=== PATIENT | female | born 1985 | race African-American/Black ===

== ENCOUNTER 2017-01-28 23:55 | Emergency (ER) | payer MEDICAID ==
[~2017-01-28] VITALS: Ht 167.6 cm; Wt 77.3 kg
--- NOTE | 2017-01-28 23:57 | ED.REPORT ---
HPI-Seizure Date of Service Jan 28, 2017 ED Provider: Nursing Notes Stated Complaint: SEIZURE Chief Complaint: Seizure General Time Seen by Provider: 23:57 Jonathan Raphael DO Jan 28, 2017 23:57
[2017-01-28 23:59] VITALS: BP 140/78; PULSE 105; RESP 20; O2SAT 98
--- NOTE | 2017-01-29 00:02 | ED.REPORT ---
HPI-Seizure Date of Service Jan 29, 2017 ED Provider: Ciro Valencia MD The pt is a 31 y/o female with a hx of seizures who presents to the ED via EMS due to a seizure today at [facility]. The pt has had a few seizures in the last 15 years but is unable to give an estimate of how many. She associates the onset of seizure with overheating. She denies lack of sensation in her extremities, biting her tongue, and urinary incontinence. She reports taking carbamazepine "decades ago" but has not taken any recently as it doesn't seem to help. Nursing Notes Stated Complaint: SEIZURE Chief Complaint: Seizure Nursing Notes Reviewed: Yes Allergies: Coded Allergies: No Known Allergies (Unverified , 01/29/17) General Time Seen by Provider: 23:57 Chief Complaint Chief Complaint: Seizure, generalized Hx Obtained From: Patient Arrived By: Ambulance Onset Occurred: Just prior to arrival Severity: Current: No pain currently Severity: Maximum: No pain Recent Healthcare: No recent doctor visit Past Medical History Past Medical History Reports: Seizure disorder Past Surgical History none reported Smoking History Unknown if Ever Smoker Social History Lives in [facility] Ambulatory Status Independent Review of Systems Denies: lack of sensation in extremities Denies: biting her tongue Neurologic: Reports: Seizure Complete sys rev & neg: except as marked. Female: Denies: Incontinence Physical Exam Initial Vital Signs Vital Signs (First) Date Time Temp Pulse Resp B/P Pulse Ox O2 Delivery O2 Flow Rate FiO2 01/28/17 23:59 36.8 105 20 140/78 98 01/29/17 02:58 Room Air Initial VS: Reviewed Head / Eyes: Atraumatic, Normocephalic Abdomen / GI: Soft, Non-tender, No guarding, No rebound, No distention Extremities: Vascular intact, Neuro intact, No swelling, No tenderness Skin: Warm, Dry, No cyanosis General/Constitutional: Awake The pt is post-ictal and dazed. Neck: Atraumatic, Supple, Full range of motion, No swelling, Non-tender Respiratory / Chest: Atraumatic, Breath sounds NL, Breath sounds = bilat, No respiratory distress, No rales, No rhonchi, No wheezing Cardiovascular: Heart rate NL, Regular rhythm, Heart sounds NL, No gallop, No murmurs, No rubs Neurologic: Oriented X3, Speech NL, No motor deficits, No sensory deficits Mental Status: Positive: Confused Speech: Positive: Slow Interpretation & Diagnostics Lab Results Interpretation Result Diagram: 01/29/17 0118 01/29/17 0118 Test 01/29/17 01:18 01/29/17 01:19 White Blood Count 8.5th/mm3 (3.8-10.1) Red Blood Count 3.95mil/mm3 (3.90-5.20) Hemoglobin 10.4g/dL (12.0-15.6) Hematocrit 32.8% (35.0-46.0) Mean Corpuscular Volume 83.0fL (81-100) Mean Corpuscular Hemoglobin 26.3pg (27.0-35.0) Mean Corpuscular Hemoglobin Concent 31.7% (32.0-37.0) Red Cell Distribution Width 13.5% (12.3-15.4) Platelet Count 391bil/L (150-400) Neutrophils (%) (Auto) 74.4% (40-74) Lymphocytes (%) (Auto) 15.1% (14-46) Monocytes (%) (Auto) 7.5% (4-12) Eosinophils (%) (Auto) 2.6% (0-5) Basophils (%) (Auto) 0.2% (0-3) Sodium Level 145mEq/L (134-144) Potassium Level 3.5mEq/L (3.5-5.2) Chloride Level 105mEq/L (97-108) Carbon Dioxide Level 25mmol/L (18-29) Blood Urea Nitrogen 6mg/dL (6-20) Creatinine 0.92mg/dL (0.57-1.00) Estimat Glomerular Filtration Rate 90mL/min (>59) Glucose Level 150mg/dL (60-99) Calcium Level 9.3mg/dL (8.5-10.1) Total Bilirubin 0.2mg/dL (0.0-1.2) Aspartate Amino Transf (AST/SGOT) 22U/L (0-50) Alanine Aminotransferase (ALT/SGPT) 15U/L (0-32) Alkaline Phosphatase 65U/L (25-150) Total Protein 7.7g/dL (6.4-8.4) Albumin 4.4g/dL (3.4-5.0) Hold Proctor Top Tube Received (Received) ECG Interpretation ECG Interpretation: Normal sinus rhythm. Rate 94. Low voltage, precordial leads. Time: 01:18 Interpreted by: ED physician X-Ray Chest Interpretation Chest Xray Interpretation: No acute findings. View: Portable, 1 view Interpretation / Wet Read by: Wet read ED physician Re-Eval/Medical Decision Med Decision/Clinical Course 31-year-old with a reported history of seizures had a seizure at [facility]. She relates this to being excessively hot. She has had a series of seizures over many years, but apparently had a rate of perhaps one a year. She does not want any seizure medicines at this time. She refuses an IV. She finally has allowed lab results to be obtained and these are reassuring. Discharge now in stable condition desiring no ongoing therapy. Counseled Regarding: Diagnosis, Lab results, Need for follow-up, When/why to return to ED Discharge & Departure Impression: Primary Impression: Seizure Disposition: Home Discharge Condition All VS Reviewed: Yes Condition: Stable Patient Instructions: Epilepsy (ED) Additional Instructions: Your seizures appear to be fairly infrequent, and your experience with meds has been at they are generally ineffective. There are several new or ones to try, but I would wait until you have more frequency before trying to pursue medical treatment. Follow-up with your doctor. Return if any immediate issues. Scribe Attestation Portions of this note were transcribed by Harpreet Prajapati. I,, personally performed the history,physical exam and medical decision-making;I reviewed and confirmed the accuracy of the information in the transcribed note. Signed by Netta Soto. 01/29/17 Ciro Valencia MD Jan 29, 2017 00:02 Harpreet Prajapati Jan 29, 2017 00:28
[2017-01-29] MEDS ORDERED: 0.9% Sodium Chloride 1,000 ML IV ONE (00:03)
[2017-01-29] MEDS ORDERED: Ondansetron 8 mg ODT Tablet PO ONE (00:30)
[2017-01-29 01:22] LABS: BASOPHILS % (AUTO) 0.2 % (0-3); EOSINOPHILS % (AUTO) 2.6 % (0-5); MONOCYTES % (AUTO) 7.5 % (4-12); Mean Corpuscular Hemoglobin 26.3 pg (27.0-35.0); NEUTROPHILS % (AUTO) 74.4 % (40-74); Platelet Count 391 bil/L (150-400)
[2017-01-29 02:58] VITALS: BP 138/75; PULSE 85; RESP 18; O2SAT 99
--- NOTE | 2017-01-29 12:29 | DRSVH ---
PROCEDURE: X-RAY CHEST ONE VIEW, PORTABLE ([id number]) INDICATIONS: seizure TECHNIQUE: One view of the chest was acquired. COMPARISON: None. FINDINGS: Surgical changes and devices: None. Lungs and pleura: No pleural effusions or pneumothorax. Lungs are clear. Mediastinum: Mediastinal contours appear normal. Heart size is normal. Bones and chest wall: No suspicious bony lesions. Overlying soft tissues appear unremarkable. IMPRESSION: 1. No acute cardiopulmonary disease. Dictated by: Lewis Jacobo M.D. on 01/29/2017 at 12:27 Approved by: Lewis Jacobo M.D. on 01/29/2017 at 12:27
== END 2017-01-29 02:15 | disposition home or self-care (01) ==
LOC: EDBD 23:55 → SED 23:55
DX: R56.9 Unspecified convulsions (principal)